=== PATIENT | male | born 1965 | race Caucasian/White ===

== ENCOUNTER 2024-08-29 10:27 | Emergency (ER) | payer BC, MEDICAID ==
--- NOTE | 2024-08-29 11:04 | ED ---
Extremity Problem HPI <GarryJorge zamora Michele - Last Filed: 08/29/24 13:44> - General Source: patient, RN notes reviewed Mode of arrival: ambulatory Limitations: no limitations <Donita Parker - Last Filed: 08/29/24 14:44> - General Chief complaint: Extremity Problem,Nontraumatic Stated complaint: Right elbow injury Time Seen by Provider: 08/29/24 10:38 - History of Present Illness Initial comments: This is a 59-year-old male with no significant medical history presented to emergency room with his for complaint of right elbow pain. Patient states that yesterday evening he was walking on his driveway when he slipped and fell onto his right elbow. Patient went to out side emergency facility yesterday where x-ray was completed concerning for dislocation of the right elbow. He states he underwent conscious sedation with post reduction x-ray revealing a relocation of the elbow was placed in a posterior arm splint and a sling. He states that over the last few hours he has been having worsening severe pain over the olecranon. He denies paresthesias or reinjury. 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 (Donita Parker) - Related Data Allergies Allergy/AdvReac Type Severity Reaction Status Date / Time No Known Allergies Allergy Verified 08/29/24 10:33 Review of Systems ROS Other: All systems not noted in ROS Statement are negative. <GarryamadoJorge Michele - Last Filed: 08/29/24 13:44> ROS Other: All systems not noted in ROS Statement are negative. <Donita Parker - Last Filed: 08/29/24 14:44> ROS Statement: Those systems with pertinent positive or pertinent negative responses have been documented in the HPI. Past Medical History Past Medical History: No Reported History History of Any Multi-Drug Resistant Organisms: None Reported Past Surgical History: No Surgical Hx Reported Past Psychological History: No Psychological Hx Reported Smoking Status: Never smoker Past Alcohol Use History: Occasional Past Drug Use History: None Reported <Donita Parker - Last Filed: 08/29/24 14:44> General Exam Limitations: no limitations Neck exam: Present: normal inspection. Absent: tenderness, meningismus, lymphadenopathy Respiratory exam: Present: normal lung sounds bilaterally. Absent: respiratory distress, wheezes, rales, rhonchi, stridor Cardiovascular Exam: Present: regular rate, normal rhythm, normal heart sounds. Absent: systolic murmur, diastolic murmur, rubs, gallop, clicks GI/Abdominal exam: Present: soft, normal bowel sounds. Absent: distended, tenderness, guarding, rebound, rigid Right Elbow exam: Present: tenderness, swelling, deformity, dislocation. Absent: normal inspection, full ROM, crepitus Neuro motor exam: Present: wrist extension intact, thumb opposition intact Vascular: Present: normal capillary refill, radial pulse (2+). Absent: vascular compromise Back exam: Present: normal inspection Skin exam: Present: warm, dry, intact, normal color. Absent: rash <Stieler,Donita - Last Filed: 08/29/24 14:44> Course Vital Signs 08/29/24 08/29/24 08/29/24 10:30 12:39 13:00 Temperature 98.1 F 99.0 F Pulse Rate 68 73 71 Respiratory 20 20 18 Rate Blood Pressure 166/95 145/102 155/86 O2 Sat by Pulse 97 95 99 Oximetry 08/29/24 08/29/24 08/29/24 13:11 13:15 13:20 Temperature Pulse Rate 66 59 L 58 L Respiratory 20 14 12 Rate Blood Pressure 147/94 184/106 168/101 O2 Sat by Pulse 99 99 93 L Oximetry 08/29/24 08/29/24 08/29/24 13:35 13:36 13:50 Temperature Pulse Rate 66 67 65 Respiratory 18 18 20 Rate Blood Pressure 161/96 138/89 132/85 O2 Sat by Pulse 98 96 100 Oximetry 08/29/24 14:01 Temperature 98 F Pulse Rate 76 Respiratory 18 Rate Blood Pressure 122/72 O2 Sat by Pulse 96 Oximetry Procedures - Orthopedic Joint Reduction Joint #1 Consent Obtained: written consent Side: right Joint Reduction Location: elbow Analgesia: procedural sedation Technique Used: traction/counter-traction Post-Reduction Neuro Exam: intact Post-Reduction Vascular Exam: intact Post Reduction X-Ray Obtained: Yes Post Reduction X-Ray Results: reduced Splint Applied: Yes Patient Tolerated Procedure: well - Procedural Sedation *Procedural Sedation Start Time: 13:10 *Procedural Sedation Stop Time: 13:45 *Risks,benefits, and alternative therapies discussed?: Yes *Patient indicates understanding of risk/benefit discussion?: Yes *Indications: fracture/dislocation reduction *Previous Adverse Reaction to Anesthesia/Sedation?: No *ASA Class: II *Mallampati Airway Score: 2 Preparation: cardiac cath lab radiology technologist applied, pulse oximeter, capnometry used, supplemental O2 applied, suction/airway equipment at bedside, IV secured IV Propofol Dose (mgs): 90 Complications: none Patient Tolerated Procedure: well <Jorge Lowry - Last Filed: 08/29/24 13:44> - Orthopedic Splinting/Casting Injury #1 Side: right Upper Extremity Injury Location: elbow Upper Extremity Immobilizer: sling/shoulder immobilizer, posterior splint, Quinn wrap, synthetic pre-padded splint <Donita Parker - Last Filed: 08/29/24 14:44> - Procedural Sedation Presedation Evaluation: Awake and alert, able to make decisions, vital signs are stable (Jorge Lowry) Medical Decision Making <Donita Parker - Last Filed: 08/29/24 14:44> - Medical Decision Making Was pt. sent in by a medical professional or institution ([facility] [place], SAMPLING THEORY TEACHER, urgent care, hospital, or [place] health care facility...) When possible be specific @ -No Did you speak to anyone other than the patient for history (EMS, parent, family, police, friend...)? What history was obtained from this source @ -No Did you review nursing and triage notes (agree or disagree)? Why? @ -I reviewed and agree with nursing and triage notes Were old charts reviewed (outside hosp., previous admission, EMS record, old EKG, old radiological studies, urgent care reports/EKG's, [place] health care facility records)? Report findings @ -No old charts were reviewed Differential Diagnosis (chest pain, altered mental status, abdominal pain women, abdominal pain men, vaginal bleeding, weakness, fever, dyspnea, syncope, headache, dizziness, GI bleed, back pain, seizure, CVA, palpatations, mental health, musculoskeletal)? @ -Differential Musculoskeletal Muscular strain, contusion, ligament sprain, fracture, arthritis, septic arthritis, bursitis, cellulitis, muscle spasm, nerve compression, DVT, arterial occlusion, herpes zoster, electrolyte abnormality, tumor.... This is not meant to be in all inclusive list EKG interpreted by me (3pts min.). @ -None X-rays interpreted by me (1pt min.). @ -X-ray of the right elbow remarkable for a dislocation with olecranon position posteriorly humerus with a cortical irregularity at the distal aspect of the right humerus and radial head may be related to fracture. X-ray of the right elbow postreduction shows interval splinting of the right elbow. CT interpreted by me (1pt min.). @ -None done U/S interpreted by me (1pt. min.). @ -None done What testing was considered but not performed or refused? (CT, X-rays, U/S, labs)? Why? @ -None What meds were considered but not given or refused? Why? @ -None Did you discuss the management of the patient with other professionals (professionals i.e. , PA, SAMPLING THEORY TEACHER, lab, RT, psych nurse, social work lecturer, record press tender, teacher, air support control officer, nurse case manager)? Give summary @ -No Was smoking cessation discussed for >3mins.? @ -No Was critical care preformed (if so, how long)? @ -No Were there social determinants of health that impacted care today? How? (Homelessness, low income, unemployed, alcoholism, drug addiction, transportation, low edu. Level, literacy, decrease access to med. care, assisted, rehab)? @ -No Was there de-escalation of care discussed even if they declined (Discuss DNR or withdrawal of care, Hospice)? DNR status @ -No What co-morbidities impacted this encounter? (DM, HTN, Smoking, COPD, CAD, Cancer, CVA, ARF, Chemo, Hep., AIDS, mental health diagnosis, sleep apnea, morbid obesity)? @ -None Was patient admitted / discharged? Hospital course, mention meds given and route, prescriptions, significant lab abnormalities, going to OR and other pertinent info. @ -Discharge. 59-year-old male presenting with right elbow pain. Patient noted to be and had intense pain on initial evaluation. Splinting removed with concern for deformity of the right elbow. Patient is neuro vastly intact of the right upper extremity. Initial x-ray of the elbow remarkable for dislocation of the olecranon. Conscious sedation performed with successful reduction of the right elbow. Patient is placed in a posterior long-arm splint and placed in a sling. He is provided with outpatient follow-up to agricultural systems specialist. my attending, assisted in performance of conscious sedation and reduction of the right elbow. Undiagnosed new problem with uncertain prognosis? @ -No Drug Therapy requiring intensive monitoring for toxicity (Heparin, Nitro, Insulin, Cardizem)? @ -No Were any procedures done? @ -conscious sedation, orthopedic posterior long arm splinting Diagnosis/symptom? @ -right olecranon dislocation, right humeral and radial head fracture/irregularity Acute, or Chronic, or Acute on Chronic? @ -acute Uncomplicated (without systemic symptoms) or Complicated (systemic symptoms)? @ -uncomplicated Side effects of treatment? @ -No Exacerbation, Progression, or Severe Exacerbation? @ -No Poses a threat to life or bodily function? How? (Chest pain, [place], VT, pneumonia, PE, COPD, DKA, ARF, appy, cholecystitis, CVA, Diverticulitis, Homicidal, Suicidal, threat to staff... and all critical care pts) @ -No (Donita Parker) Disposition <Jorge Lowry - Last Filed: 08/29/24 13:44> Is patient prescribed a controlled substance at d/c from ED?: No Time of Disposition: 13:42 <Donita Parker - Last Filed: 08/29/24 14:44> Clinical Impression: Dislocation of right elbow Disposition: HOME SELF-CARE Condition: Stable Instructions (If sedation given, give patient instructions): Elbow Dislocation (ED), Procedural Sedation (ED) Additional Instructions: Please return to the Emergency Department if symptoms worsen or any other concerns. Follow-up with agricultural systems specialist provided on your discharge for further evaluation. Keep splint and sling in place until follow-up. Referrals: None,Stated [Primary Care Provider] - 1-2 days Remi Aburto DO [Doctor of Osteopathic Medicine] - 1-2 days
[2024-08-29] MEDS: HYDROmorphone 1 MG/ML 1 ML SYRINGE IM STA (11:05)
--- NOTE | 2024-08-29 12:06 | XR ---
EXAMINATION TYPE: XR elbow limited RT DATE OF EXAM: 08/29/2024 11:42 AM CLINICAL INDICATION:Male, 59 years old with history of hx of dislocation elbow, pain; [facility] COMPARISON: None TECHNIQUE: XR elbow limited RT; elbow was examined in AP, lateral, and oblique projections. FINDINGS: Right elbow dislocation is present. The humerus is not articulating with the olecranon which is poste riorly displaced. There is cortical irregularity only seen on the lateral view at the distal aspect o f the humerus and lateral aspect of the radius. There is moderate soft tissue swelling of the elbow a nd proximal forearm. No radiopaque foreign bodies. IMPRESSION: 1. Right elbow dislocation with the olecranon positioned posteriorly to the humerus. 2. Additional cortical irregularity is suggested at the distal aspect of the right humerus and latera l aspect of the radial head only seen on lateral view which may relate to a fracture. 3. Moderate soft tissue swelling of the right elbow and proximal forearm. [facility], , 08/29/2024 12:04 PM
[2024-08-29] MEDS: PROPOFOL 10 MG/ML 20 ML VIAL IV ONE (13:10)
[2024-08-29] MEDS: KETOROLAC 15 MG/ML 1 ML VIAL IVP STA (13:25)
[2024-08-29] MEDS: HYDROmorphone 0.5 MG/0.5 ML SYRINGE IVP STA (13:25)
[2024-08-29] MEDS: ACET/COD 300 MG/30 MG STARTER PACK 6 TAB BTL PO STA (13:58)
[2024-08-29 14:02] VITALS: BP 122/72; PULSE 76; RESP 18; TEMP 98
--- NOTE | 2024-08-29 14:24 | XR ---
EXAMINATION TYPE: XR elbow limited RT DATE OF EXAM: 08/29/2024 1:26 PM CLINICAL INDICATION:Male, 59 years old with history of post reduction; [facility] COMPARISON: Right elbow radiograph from same day. TECHNIQUE: XR elbow limited RT; elbow was examined in AP, lateral, and oblique projections. FINDINGS: Interval approximation of the olecranon and humerus with the humerus now articulating with the olecra non. There is a loose osseous fragment seen in the lateral aspect of the elbow. Moderate soft tissue swelling. IMPRESSION: Interval approximation of the olecranon and humerus status post elbow reduction. Loose osseous fragme nt is seen in the lateral aspect of the elbow concerning for radial head versus olecranon fracture. F indings could be better characterized with dedicated CT elbow. [facility], , 08/29/2024 2:21 PM
--- NOTE | 2024-08-29 14:27 | XR ---
EXAMINATION TYPE: XR elbow limited RT DATE OF EXAM: 08/29/2024 1:42 PM CLINICAL INDICATION:Male, 59 years old with history of post reduction; [facility] COMPARISON: Right elbow radiograph from same day TECHNIQUE: XR elbow limited RT; elbow was examined in lateral projection only. Findings: Interval splinting of the right elbow with the olecranon seen articulating with the humerus. IMPRESSION: Interval splinting of the right elbow. [facility], , 08/29/2024 2:24 PM
== END 2024-08-29 14:01 | disposition home or self-care (01) ==
LOC: EC 10:27
DX: S53.104A Unspecified dislocation of right ulnohumeral joint, initial encounter (principal); W01.0XXA Fall on same level from slipping, tripping and stumbling without subsequent striking against object, initial encounter; Y93.01 Activity, walking, marching and hiking
CPT/HCPCS: 99152; 99153; 24600; 96372; 96374; 96375; 73070; 99284; J1171 ×2; J1885; J2704; 99283